=== PATIENT | male | born 1985 | race Caucasian/White ===

== ENCOUNTER 2018-05-02 18:16 | Emergency (ER) | payer OTHER ==
[2018-05-02] MEDS ORDERED: Tetan/Diph/Pertus SYR(Tdap)* 0.5 ML SYR(BOOSTRIX) use SYR IM ONE (19:00)
[2018-05-02] MEDS ORDERED: Lidocaine 2% PF * 5 ML VIAL ONE (20:25)
[2018-05-02] MEDS ORDERED: Amoxicillin/Clavulanate TAB* 875 MG PO ONE (20:38)
--- NOTE | 2018-05-02 21:21 | ED ---
Bite Injury/Animal - HPI Summary HPI Summary: Complains of fever by to right posterior thigh [place] Blayne was killed and is now in possession of animal control. Health department states patient does not meet criteria for starting both rabies prophylaxis until results on animal biopsy returned. - History of Current Complaint Chief Complaint: EDExtremityLower Stated Complaint: RT LEG ANIMAL BITE Time Seen by Provider: 05/02/18 18:55 Hx Obtained From: Patient Onset of Injury: Happened hours ago Type of Bite: Animal Hx of Bite: Unprovoked Has Animal Been Immunized?: Unknown Severity Initially: Moderate Severity Currently: Moderate Pain Intensity: 8 Pain Scale Used: 0-10 Numeric Character: Abrasion/Laceration Associated Signs And Symptoms: Positive: Negative - Allergies/Home Medications Allergies/Adverse Reactions: Allergies Allergy/AdvReac Type Severity Reaction Status Date / Time No Known Allergies Allergy Verified 05/02/18 18:21 PMH/Surg Hx/FS Hx/Imm Hx Endocrine/Hematology History: Denies: Hx Anticoagulant Therapy History: Denies: Hx Dialysis Neurological History: Denies: Hx CVA Infectious Disease History: No Infectious Disease History: Denies: Traveled Outside the [place] in Last 30 Days - Family History Known Family History: Positive: None - Social History Alcohol Use: Weekly Substance Use Type: Reports: None Smoking Status (MU): Never Smoked Tobacco Review of Systems Constitutional: Negative Eyes: Negative ENT: Negative Cardiovascular: Negative Respiratory: Negative Gastrointestinal: Negative Genitourinary: Negative Musculoskeletal: Negative Skin: Other Neurological: Negative Psychological: Normal All Other Systems Reviewed And Are Negative: Yes Physical Exam - Summary Physical Exam Summary: 8 cm irregular laceration to posterior distal thigh. Wound is superficial. PMS intact distally flexes and extends knee joint without pain. Triage Information Reviewed: Yes Vital Signs On Initial Exam: Initial Vitals Temp Pulse Resp BP Pulse Ox 98.0 F 110 20 131/86 98 05/02/18 18:19 05/02/18 18:19 05/02/18 18:19 05/02/18 18:19 05/02/18 18:19 Vital Signs Reviewed: Yes Appearance: Positive: Well-Appearing Skin: Positive: Warm Head/Face: Positive: Normal Head/Face Inspection Eyes: Positive: Normal Neck: Positive: Supple Respiratory/Lung Sounds: Positive: Clear to Auscultation Cardiovascular: Positive: Normal Abdomen Description: Positive: Nontender Musculoskeletal: Positive: Normal Neurological: Positive: Normal Psychiatric: Positive: Normal AVPU Assessment: Alert - Shonda Coma Scale Best Eye Response: 4 - Spontaneous Best Motor Response: 6 - Obeys Commands Best Verbal Response: 5 - Oriented Coma Scale Total: 15 Procedures - Laceration/Wound Repair 1 Location: lower extremity Description: Irregular Anesthesia: Local, 1.0% Length, Depth and Shape: 8cm x 1cm Betadine Prep?: No - chlorhexidine prep Irrigated w/ Saline (ccs): 100 - chlorhexidine and saline Laceration/Wound Explored: clean Debridement: minimal Number of Sutures: 9 - 4. 0 Ethilon Layer Closure?: No Diagnostics - Vital Signs Vital Signs Temp Pulse Resp BP Pulse Ox 05/02/18 18:19 98.0 F 110 20 131/86 98 - Laboratory Lab Statement: Any lab studies that have been ordered have been reviewed, and results considered in the medical decision making process. Bite Injury Course/Dx - Course Course Of Treatment: Patient started on Augmentin here in the ED. Rx for same. Wound extensively cleaned. Loosely approximated. Patient does not meet criteria for rabies prophylaxis per health department. Fever is in possession of the animal department and biopsy will be performed with likely results on Friday. Patient from [place], returning to [place] on Friday. Follow-up with health department in [place]. - Diagnoses Provider Diagnosis: Animal bite of right lower leg, Laceration Discharge - Sign-Out/Discharge Documenting (check all that apply): Patient Departure - Discharge Plan Condition: Stable Disposition: HOME Prescriptions: Amoxicillin/Clavulanate TAB* [Augmentin TAB 875*] 875 mg PO BID #20 tab Patient Education Materials: Animal Bite (ED) Referrals: No Primary Care Phys,NOPCP [Primary Care Provider] - Additional Instructions: Take antibiotics as directed. Sutures out in 10 days. May wash with warm running water and soap. Do not submerge. Return to the ED for any new or worsening symptoms including redness, swelling, purulent drainage. - Billing Disposition and Condition Condition: STABLE Disposition: Home
[2018-05-02 21:34] VITALS: BP 114/58
== END 2018-05-02 21:33 | disposition home or self-care (01) ==
LOC: ED 18:16
DX: S71.151A Open bite, right thigh, initial encounter (principal); S71.111A Laceration without foreign body, right thigh, initial encounter; W55.82XA Struck by other mammals, initial encounter; Y92.9 Unspecified place or not applicable
CPT/HCPCS: 12004; 90471; 90715; 99282; A9270-GY

== ENCOUNTER 2018-05-05 15:40 | Emergency (ER) | payer OTHER ==
[2018-05-05 15:53] VITALS: BP 143/91
[2018-05-05] MEDS ORDERED: Rabies VIRUS VACCINE (Imovax)* 2.5 UNIT/ML 1 ML IM ONE (16:14)
[2018-05-05] MEDS ORDERED: Rabies Immune Globulin 10 ML* 150 UNIT/ML VIAL IM ONE (16:14)
[2018-05-05] MEDS ORDERED: Rabies Immune Globulin 2 ML* 150 UNITS/ML VIAL IM ONE ×2 (16:14→16:16)
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
== END 2018-05-05 17:39 | disposition home or self-care (01) ==
LOC: UCEAST 15:40
DX: S81.031A Puncture wound without foreign body, right knee, initial encounter (principal); W64.XXXA Exposure to other animate mechanical forces, initial encounter; Y93.16 Activity, rowing, canoeing, kayaking, rafting and tubing; Y92.89 Other specified places as the place of occurrence of the external cause; Z20.3 Contact with and (suspected) exposure to rabies; Z23 Encounter for immunization; Z82.49 Family history of ischemic heart disease and other diseases of the circulatory system
CPT/HCPCS: 90375; 96372; 99213; G0463